=== PATIENT | male | born 1975 | race Caucasian/White ===

== ENCOUNTER 2019-12-17 19:33 | Emergency (ER) | payer MEDICARE, OTHER ==
[2019-12-17] MEDS ORDERED: SODIUM CHLORIDE 0.9% 1000ML 1,000 ML IVS ONE (20:10)
--- NOTE | 2019-12-17 20:49 | RAD ---
EXAM DESCRIPTION: Chest,1 View 12/17/2019 8:47 PM CDT CLINICAL HISTORY: 44 years, Male, dizziness, cough, syncope COMPARISON: None. FINDINGS: Single view of the chest was obtained portable. No prior films are available for comparison. The cardiomediastinal silhouette demonstrate to be unremarkable. The heart is not enlarged. The thoracic aorta is unremarkable. Costophrenic angles are sharp. No areas of consolidation or masses are seen. External EKG leads within the [id number] limits diagnosis. The rest of the soft tissue and bony structures demonstrate to be unremarkable. IMPRESSION: NO ACUTE CARDIOPULMONARY DISEASE SEEN. Electronically signed by: Mingo Nicole MD 12/17/2019 8:47 PM CDT
--- NOTE | 2019-12-17 21:09 | ED.PDOC ---
History of Present Illness - General Chief Complaint: General Stated Complaint: diarrhea, headache, dizziness, Time Seen by Provider: 12/17/19 20:10 Source: patient, RN notes reviewed, Vital Signs reviewed Exam Limitations: no limitations - History of Present Illness Initial Comments: This is a 44-year-old male with history of Buerger's disease, presenting to the emergency department complaining of cough, nasal congestion, sore throat, vomiting, diarrhea that began 3 to 4 days ago. He states over the last 24 hours he has felt dizzy when he stands and has had "numbness to my entire body". Episodes last anywhere from a few seconds to a few minutes. He states he has had two syncopal episodes, the most recent was today. He did not hit his head. He is unsure how long he was unconscious today. He denies any headache. No known Covid contacts. He states that his mother had "flu" last week but was not tested Allergies/Adverse Reactions: Allergies Aspirin Allergy (Verified 10/19/19 11:49) Penicillins Allergy (Verified 10/19/19 11:49) Home Medications: Ambulatory Orders Acetaminophen W/ Codeine [Tylenol W/ CODEINE #3] 1 ea PO TID PRN #10 ea 10/19/19 Clindamycin HCl 300 mg PO Q8H 10 Days #30 cap 10/19/19 Ofloxacin (Otic) [Floxin Otic] 0.3 % OT 5XD 5 Days #1 tube 10/19/19 Benzonatate Perles [Tessalon Perles] 1 - 2 capsule PO Q6H PRN #20 cap 12/17/19 Diphenoxylate/Atropine [Lomotil Tab] 5 mg PO Q6H PRN #20 tab 12/17/19 Ondansetron Odt (ER Disp) [Zofran ODT (ER DISP)] 8 mg PO ONCE PRN #2 tab 0 Ondansetron Odt [Zofran ODT] 8 mg PO Q6H PRN #10 tab 12/17/19 Review of Systems - Review of Systems Constitutional: States: chills. Denies: fever EENTM: States: nose congestion, throat pain. Denies: ear pain, ear discharge, throat swelling Respiratory: States: cough, short of breath. Denies: wheezing Cardiology: States: syncope. Denies: chest pain, edema Gastrointestinal/Abdominal: States: abdominal pain, diarrhea, nausea, vomiting. Denies: constipation Genitourinary: Denies: dysuria, hematuria Musculoskeletal: Denies: joint pain, joint swelling, muscle stiffness, neck pain Skin: Denies: dryness, lumps Neurological: States: paresthesia, tingling. Denies: headache, weakness Endocrine: States: no symptoms reported Hematologic/Lymphatic: States: no symptoms reported Past Medical History (General) - Patient Medical History Hx Stroke: No Hx of COPD: Yes Hx Congestive Heart Failure: No Hx Hypertension: Yes Hx Thyroid Disease: No Hx Diabetes: No Hx Renal Disease: No Surgical History: other - Vaccination History Hx Tetanus, Diphtheria Vaccination: Yes Hx Influenza Vaccination: Yes - 2019 Hx Pneumococcal Vaccination: Yes - 2019 - Social History Hx Tobacco Use: Yes Hx Alcohol Use: Yes - rarely Family Medical History - Family History Mother Family History: No Known Physical Exam - Physical Exam General Appearance: Alert, Comfortable, No apparent distress Ears, Nose, Throat: normal ENT inspection, normal pharynx Neck: non-tender, full range of motion, supple Respiratory: chest non-tender, lungs clear, normal breath sounds, no respiratory distress, no accessory muscle use Cardiovascular/Chest: normal peripheral pulses, regular rate, rhythm, no edema, no gallop, no JVD, no murmur Gastrointestinal/Abdominal: non tender, soft Back Exam: normal inspection, no CVA tenderness, no vertebral tenderness Extremity: non-tender, no pedal edema, other - Right index finger amputation, multiple toe amputations, consistent with his reported history of Buerger's disease Neurologic: no motor/sensory deficits, alert, normal mood/affect Skin Exam: normal color, warm/dry Progress - Progress Progress: 12/17/19 23:55 Rechecked. Vital signs remain normal. Patient states he still feels slightly dizzy when standing. I recommended he push fluids, including sports drinks. Recommended follow-up with PCP in 2 to 3 days for recheck. Strict warnings given to return the emergency room for recurrent syncope, chest pain, shortness of breath, fever, blood in stool, or any other concerns DDx: Arrhythmia, hypoglycemia, dehydration, COVID-19, other viral URI MDM: 44-year-old male with history of Buerger's disease presenting for reported syncope, dizziness, cough, runny nose, vomiting, diarrhea, all ongoing for 3 to 4 days. He is afebrile with normal vital signs of the emergency department. He does not appear septic at this time. Does not appear severely dehydrated at this time. Covid swab is negative. EKG is normal. No indication for admission. Recommended follow-up PCP in 3 to 5 days. Osito Clements DO [facility] #[id number] - Results/Orders Results/Orders: EKG reviewed by me at 2022. Normal sinus rhythm, rate of 88, normal axis, normal intervals, no ST segment elevations or depressions EXAM DESCRIPTION: Chest,1 View 12/17/2019 8:47 PM CDT CLINICAL HISTORY: 44 years, Male, dizziness, cough, syncope COMPARISON: None. FINDINGS: Single view of the chest was obtained portable. No prior films are available for comparison. The cardiomediastinal silhouette demonstrate to be unremarkable. The heart is not enlarged. The thoracic aorta is unremarkable. Costophrenic angles are sharp. No areas of consolidation or masses are seen. External EKG leads within the [id number] limits diagnosis. The rest of the soft tissue and bony structures demonstrate to be unremarkable. IMPRESSION: NO ACUTE CARDIOPULMONARY DISEASE SEEN. Electronically signed by: Mingo Nicole MD 12/17/2019 8:47 PM CDT Laboratory Results - last 24 hr 12/17/19 12/17/19 12/17/19 20:45 20:45 20:45 WBC 12.0 H RBC 5.05 Hgb 16.2 Hct 46.3 MCV 91.6 MCH 32.1 H MCHC 35.0 RDW 14.0 Plt Count 327 MPV 8.8 Absolute Neuts (auto) 9.00 H Absolute Lymphs (auto) 1.70 Absolute Monos (auto) 0.80 Absolute Eos (auto) 0.40 Absolute Basos (auto) 0.10 Neutrophils % 75.2 Lymphocytes % 14.1 L Monocytes % 6.8 Eosinophils % 2.9 Basophils % 1.0 D-Dimer, Quantitative < 131.0 L Sodium Potassium Chloride Carbon Dioxide Anion Gap BUN Creatinine BUN/Creatinine Ratio Random Glucose Serum Osmolality Calcium Magnesium Total Bilirubin AST ALT Alkaline Phosphatase Troponin I < 0.02 C-Reactive Protein B-Natriuretic Peptide Serum Total Protein Albumin Globulin Albumin/Globulin Ratio 12/17/19 20:45 WBC RBC Hgb Hct MCV MCH MCHC RDW Plt Count MPV Absolute Neuts (auto) Absolute Lymphs (auto) Absolute Monos (auto) Absolute Eos (auto) Absolute Basos (auto) Neutrophils % Lymphocytes % Monocytes % Eosinophils % Basophils % D-Dimer, Quantitative Sodium 137 Potassium 3.4 L Chloride 97 L Carbon Dioxide 28 Anion Gap 15.4 BUN 14 Creatinine 0.76 BUN/Creatinine Ratio 18.4 Random Glucose 80 Serum Osmolality 273.3 L Calcium 9.2 Magnesium 2.1 Total Bilirubin 0.8 AST 32 ALT 19 Alkaline Phosphatase 54 Troponin I C-Reactive Protein < 8 H B-Natriuretic Peptide < 15.0 Serum Total Protein 7.3 Albumin 4.4 Globulin 2.9 Albumin/Globulin Ratio 1.5 Respiratory viral panel all negative. Departure - Departure Clinical Impression: Viral upper respiratory tract infection with cough, Nausea vomiting and diarrhea, Syncope due to orthostatic hypotension, Dehydration Disposition: Discharge to Home or Self Care Condition: Good Departure Forms: ED Discharge - Pt. Copy, Patient Portal Self Enrollment Instructions: Dehydration, Adult (DC), Viral Upper Respiratory Infection, Adult (DC) Referrals: BELKIS FORMAN [Primary Care Provider] - 1-5 Days Prescriptions: Diphenoxylate/Atropine [Lomotil Tab] 5 mg PO Q6H PRN #20 tab PRN Reason: Diarrhea Benzonatate Perles [Tessalon Perles] 1 - 2 capsule PO Q6H PRN #20 cap PRN Reason: Cough Ondansetron Odt [Zofran ODT] 8 mg PO Q6H PRN #10 tab PRN Reason: Nausea Ondansetron Odt (ER Disp) [Zofran ODT (ER DISP)] 8 mg PO ONCE PRN #2 tab PRN Reason: Nausea Home Medications: Ambulatory Orders Acetaminophen W/ Codeine [Tylenol W/ CODEINE #3] 1 ea PO TID PRN #10 ea 10/19/19 Clindamycin HCl 300 mg PO Q8H 10 Days #30 cap 10/19/19 Ofloxacin (Otic) [Floxin Otic] 0.3 % OT 5XD 5 Days #1 tube 10/19/19 Benzonatate Perles [Tessalon Perles] 1 - 2 capsule PO Q6H PRN #20 cap 12/17/19 Diphenoxylate/Atropine [Lomotil Tab] 5 mg PO Q6H PRN #20 tab 12/17/19 Ondansetron Odt (ER Disp) [Zofran ODT (ER DISP)] 8 mg PO ONCE PRN #2 tab 12/17/19 Ondansetron Odt [Zofran ODT] 8 mg PO Q6H PRN #10 tab 12/17/19
[2019-12-18 00:49] VITALS: BP 123/79; TEMP 96.5; O2SAT 97
== END 2019-12-18 00:04 | disposition home or self-care (01) ==
LOC: ER 19:33
DX: J06.9 Acute upper respiratory infection, unspecified (principal); R11.2 Nausea with vomiting, unspecified; R19.7 Diarrhea, unspecified; E86.0 Dehydration; R55 Syncope and collapse; I95.1 Orthostatic hypotension; I73.1 Thromboangiitis obliterans [Buerger's disease]; Z20.828 Contact with and (suspected) exposure to other viral communicable diseases; J44.9 Chronic obstructive pulmonary disease, unspecified; I10 Essential (primary) hypertension; Z87.891 Personal history of nicotine dependence
CPT/HCPCS: 71045; 80053; 83735; 83880; 84484; 85025; 85379; 86140; 87486; 87581; 87633; 87635; 93005; J7030

== ENCOUNTER 2020-01-09 23:11 | Emergency (ER) | payer MEDICAID, OTHER ==
[2020-01-09] MEDS ORDERED: HYDROcodone 5MG/APAP 325MG 1 EA TAB PO ONE (23:53)
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
--- NOTE | 2020-01-10 00:04 | RAD ---
EXAM DESCRIPTION: Tibia/Fibula,Right 01/10/2020 12:02 AM COMMISSARY HELPER CLINICAL HISTORY: 44 years, Male, pain COMPARISON: None. FINDINGS: 2 X-ray views of the right tibia and fibula (frontal and lateral) were performed. No areas of acute bony injuries were demonstrated. No gross articular or soft tissue abnormality is identified. There are no gross intraosseous lesions. No periosteal reaction were seen. No radiopaque foreign body is identified. IMPRESSION: NO EVIDENCE FOR FRACTURE OR DISLOCATION AT THE RIGHT TIBIA AND FIBULA. Electronically signed by: Mingo Nicole MD 01/10/2020 12:03 AM COMMISSARY HELPER
--- NOTE | 2020-01-10 00:04 | RAD ---
EXAM DESCRIPTION: Ankle,Right 3 Views 01/10/2020 12:01 AM MOVIE THEATER USHER CLINICAL HISTORY: 44 years, Male, pain COMPARISON: None. FINDINGS: 3 X-ray views of the right ankle were performed. There is no evidence for fracture or dislocation. There is mild diffuse bony osteopenia. The ankle mortise is intact. There is no significant joint effusion. There are no gross intraosseous lesions. No gross soft tissue abnormality is demonstrated. Noted is the presence of amputation of the right foot at the level of the base metatarsals. IMPRESSION: STATUS POST AMPUTATION OF THE FOOT AT THE LEVEL OF THE BASE OF THE METATARSALS. NO EVIDENCE OF FRACTURE OR DISLOCATION AT THE RIGHT ANKLE. Electronically signed by: Mingo Nicole MD 01/10/2020 12:02 AM MOVIE THEATER USHER
[2020-01-10 01:14] VITALS: O2SAT 99
[2020-01-10 01:18] VITALS: BP 122/69; TEMP 98.2
== END 2020-01-10 01:10 | disposition home or self-care (01) ==
LOC: ER 23:11
DX: M76.61 Achilles tendinitis, right leg (principal); J44.9 Chronic obstructive pulmonary disease, unspecified; I10 Essential (primary) hypertension; Z89.431 Acquired absence of right foot; Z87.891 Personal history of nicotine dependence; Z86.718 Personal history of other venous thrombosis and embolism; Z88.6 Allergy status to analgesic agent; Z88.0 Allergy status to penicillin

== ENCOUNTER 2020-01-23 22:33 | Emergency (ER) | payer MEDICAID, OTHER ==
[2020-01-23] MEDS ORDERED: SODIUM CHLORIDE 0.9% 1000ML 1,000 ML IVS ONE (23:10)
[2020-01-23] MEDS ORDERED: PROMETHAZINE HCL INJ 25 MG in SODIUM CHLORIDE 0.9% 50ML 50 ML IVPB ONE (23:10)
--- NOTE | 2020-01-24 00:27 | RAD ---
EXAM DESCRIPTION: Abdomen Series CLINICAL HISTORY: 44 years Male ,dizziness, nv COMPARISON: Chest x-ray from 12/17/2019. TECHNIQUE: Frontal view chest x-ray and two views of the abdomen. FINDINGS: The cardiomediastinal silhouette appears unremarkable. No consolidating infiltrates or pleural effusions. No free air is identified beneath the hemidiaphragms. The ascending and transverse colon appears slightly distended with stool. No dilated loops of bowel to suggest obstruction. No significant calcific densities are identified. There are changes from previous vertebral body augmentation at T10. There are changes of anterior and posterior fusion at L3-4. IMPRESSION: No acute plain film abnormality is identified. Electronically signed by: Codey Rowe MD 01/24/2020 12:26 AM CASTING TECHNICIAN
[2020-01-24] MEDS ORDERED: predniSONE 20 MG TAB PO ONE (00:58)
--- NOTE | 2020-01-24 01:52 | ED.PDOC ---
History of Present Illness - General Chief Complaint: General Stated Complaint: body aches, nausea Time Seen by Provider: 01/23/20 22:44 Source: patient Exam Limitations: no limitations - History of Present Illness Initial Comments: The patient is a 44-year-old male presented to emergency room secondary to what sounds like a few episodes of vertigo today with associated nausea and vomiting. He is a little bit dizzy currently but the room is not spinning. No abnormal nystagmus. No visual field changes. He does get a little more dizzy with looking upwards. He does get a little more dizzy with standing. No syncope. No head trauma. Head impulse testing does not really localize to one side or another. The patient does have a foreign body wedged in the left ear canal irritating the eardrum. No abdominal tenderness to palpation. No rebound or peritoneal signs. No fever. No significant vertical skew deviation. Timing/Duration: other - 8 hours Severity: moderate Improving Factors: nothing Worsening Factors: nothing Associated Symptoms: malaise Allergies/Adverse Reactions: Allergies Aspirin Allergy (Verified 10/19/19 11:49) Penicillins Allergy (Verified 10/19/19 11:49) Home Medications: Ambulatory Orders Meclizine HCl 25 mg PO Q6HR PRN #14 tab 01/24/20 Ondansetron Odt [Zofran ODT] 4 mg PO Q8HR PRN #5 tab 01/24/20 predniSONE [Prednisone] 20 mg PO DAILY #7 tab 01/24/20 Review of Systems - Review of Systems Constitutional: States: malaise EENTM: States: other - Mild decreased hearing out of left ear Respiratory: States: no symptoms reported Cardiology: States: no symptoms reported Gastrointestinal/Abdominal: States: nausea, vomiting Genitourinary: States: no symptoms reported Musculoskeletal: States: no symptoms reported Skin: States: no symptoms reported Neurological: States: see HPI Endocrine: States: no symptoms reported All other Systems: No Change from Baseline Past Medical History (General) - Patient Medical History Hx Stroke: No Hx of COPD: Yes Hx Congestive Heart Failure: No Hx Hypertension: Yes Hx Thyroid Disease: No Hx Diabetes: No Hx Renal Disease: No Surgical History: appendectomy, cholecystectomy, other - Vaccination History Hx Tetanus, Diphtheria Vaccination: Yes Hx Influenza Vaccination: Yes - 2018 Hx Pneumococcal Vaccination: Yes - 2019 - Social History Hx Tobacco Use: Yes Hx Alcohol Use: Yes - rarely Family Medical History - Family History Mother Family History: No Known Physical Exam - Physical Exam General Appearance: Alert, No apparent distress Eye Exam: bilateral normal Ears, Nose, Throat: hearing grossly normal, normal pharynx, other - Foreign body removed from left ear canal leaving a irritated tympanic membrane on the left Neck: full range of motion, supple Respiratory: lungs clear, normal breath sounds, no respiratory distress, no accessory muscle use Cardiovascular/Chest: normal peripheral pulses, regular rate, rhythm, no edema Peripheral Pulses: radial,right: 2+, radial,left: 2+ Gastrointestinal/Abdominal: non tender, soft Rectal Exam: deferred Back Exam: no CVA tenderness, no vertebral tenderness Extremity: normal range of motion, non-tender, normal inspection, no pedal edema, normal capillary refill 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 This is most likely due to a labyrinthitis based on history and exam. The patient is going to be placed on prednisone 20 mg a day for 5 days. He will also be written for meclizine for dizziness for as needed use and Zofran to control any nausea vomiting. He needs to keep himself well-hydrated and maintain a bland diet. Foreign body was removed from the left ear canal which will hopefully help. No antibiotics are warranted at this time otherwise. ER warnings are given for any significant worsening. Follow-up with primary care doctor within the coming week. brant gamino [phone] - Results/Orders Results/Orders: Abdominal 2 view shows no acute pathology. Laboratory Tests 01/23/20 01/23/20 01/23/20 23:30 23:30 23:30 WBC 6.4 RBC 4.65 L Hgb 14.7 Hct 41.8 L MCV 89.9 MCH 31.6 H MCHC 35.1 RDW 14.1 Plt Count 290 MPV 8.9 Absolute Neuts (auto) 3.20 Absolute Lymphs (auto) 2.20 Absolute Monos (auto) 0.60 Absolute Eos (auto) 0.30 Absolute Basos (auto) 0.10 Neutrophils % 50.4 Lymphocytes % 34.8 Monocytes % 8.8 Eosinophils % 5.1 H Basophils % 0.9 PT 9.6 INR < 1.00 PTT (SP) 26.5 D-Dimer, Quantitative < 131.0 L Sodium 138 Potassium 3.7 Chloride 101 Carbon Dioxide 27 Anion Gap 13.7 BUN 12 Creatinine 0.71 BUN/Creatinine Ratio 16.9 Random Glucose 97 Serum Osmolality 275.4 Lactic Acid Calcium 8.3 L Magnesium 2.2 Total Bilirubin 0.5 AST 19 ALT 18 Alkaline Phosphatase 44 Creatine Kinase 89 CK-MB (CK-2) 2.2 CK-MB (CK-2) % Not Reportable Troponin I < 0.02 B-Natriuretic Peptide < 15.0 Serum Total Protein 6.6 Albumin 4.1 Globulin 2.5 Albumin/Globulin Ratio 1.6 Amylase 63 Lipase 36 TSH 1.68 Urine Color Urine Appearance Urine pH Ur Specific [place] Urine Protein Urine Glucose (UA) Urine Ketones Urine Blood Urine Nitrite Urine Bilirubin Urine Urobilinogen Ur Leukocyte Esterase Urine RBC Urine WBC Ur Epithelial Cells Urine Bacteria 01/23/20 01/24/20 23:30 00:40 WBC RBC Hgb Hct MCV MCH MCHC RDW Plt Count MPV Absolute Neuts (auto) Absolute Lymphs (auto) Absolute Monos (auto) Absolute Eos (auto) Absolute Basos (auto) Neutrophils % Lymphocytes % Monocytes % Eosinophils % Basophils % PT INR PTT (SP) D-Dimer, Quantitative Sodium Potassium Chloride Carbon Dioxide Anion Gap BUN Creatinine BUN/Creatinine Ratio Random Glucose Serum Osmolality Lactic Acid 0.8 Calcium Magnesium Total Bilirubin AST ALT Alkaline Phosphatase Creatine Kinase CK-MB (CK-2) CK-MB (CK-2) % Troponin I B-Natriuretic Peptide Serum Total Protein Albumin Globulin Albumin/Globulin Ratio Amylase Lipase TSH Urine Color Yellow Urine Appearance Clear Urine pH 7.0 Ur Specific [place] 1.020 Urine Protein Negative Urine Glucose (UA) Negative Urine Ketones Negative Urine Blood Negative Urine Nitrite Negative Urine Bilirubin Negative Urine Urobilinogen 0.2 Ur Leukocyte Esterase Negative Urine RBC 0 Urine WBC 0 Ur Epithelial Cells 0 Urine Bacteria 0 Departure - Departure Clinical Impression: Vertigo Foreign body in ear Qualifiers: Encounter type: initial encounter Laterality: left Qualified Code(s): T16.2XXA - Foreign body in left ear, initial encounter Disposition: Discharge to Home or Self Care Condition: Fair Departure Forms: ED Discharge - Pt. Copy, Patient Portal Self Enrollment Diet: regular diet Activity: increase activity as tolerated Referrals: BELKIS FORMAN [Primary Care Provider] - 1-2 Weeks Prescriptions: Meclizine HCl 25 mg PO Q6HR PRN #14 tab PRN Reason: Dizziness Ondansetron Odt [Zofran ODT] 4 mg PO Q8HR PRN #5 tab PRN Reason: Nausea--Moderate predniSONE [Prednisone] 20 mg PO DAILY #7 tab Home Medications: Ambulatory Orders Meclizine HCl 25 mg PO Q6HR PRN #14 tab 01/24/20 Ondansetron Odt [Zofran ODT] 4 mg PO Q8HR PRN #5 tab 01/24/20 predniSONE [Prednisone] 20 mg PO DAILY #7 tab 01/24/20 Additional Instructions: The patient is a 44-year-old male presents emergency room with what appears to be vertigo. This is most likely due to a labyrinthitis based on history and exam. The patient is going to be placed on prednisone 20 mg a day for 5 days. He will also be written for meclizine for dizziness for as needed use and Zofran to control any nausea vomiting. He needs to keep himself well-hydrated and maintain a bland diet. Foreign body was removed from the left ear canal which will hopefully help. No antibiotics are warranted at this time otherwise. ER warnings are given for any significant worsening. Follow-up with primary care doctor within the coming week.
[2020-01-24 02:03] VITALS: BP 106/61; TEMP 97.4; O2SAT 97
== END 2020-01-24 02:02 | disposition home or self-care (01) ==
LOC: ER 22:33
DX: R42 Dizziness and giddiness (principal); T16.2XXA Foreign body in left ear, initial encounter; J44.9 Chronic obstructive pulmonary disease, unspecified; Y92.9 Unspecified place or not applicable; Z87.891 Personal history of nicotine dependence; Z88.0 Allergy status to penicillin; Z88.6 Allergy status to analgesic agent
CPT/HCPCS: 74019; 80053; 81001; 82150; 82550; 82553; 83605; 83690; 83735; 83880; 84443; 84484; 85025; 85379; 85610; 85730; A4216; J2550; J7512

== ENCOUNTER 2020-02-07 13:49 | Emergency (ER) | payer OTHER ==
--- NOTE | 2020-02-07 16:28 | ED.PDOC ---
History of Present Illness - General Chief Complaint: Back Pain or Injury Stated Complaint: back pain x several days, also cough and cold Time Seen by Provider: 02/07/20 13:50 Source: patient, RN notes reviewed, Vital Signs reviewed - History of Present Illness Initial Comments: 44 yo male with 4 days of back pain, right thoracic, lateral. hx of multiple fusion surgeries in the past. no issues with urination or bowel. no saddle numbness. also has cough, cousin with covid. no recent trauma. patient was lifting something at work when he felt a spasm in his upper back. worse with rotation. Allergies/Adverse Reactions: Allergies Aspirin Allergy (Verified 10/19/19 11:49) Penicillins Allergy (Verified 10/19/19 11:49) Tramadol Allergy (Verified 02/07/20 16:20) Ketorolac Tromethamine [From Toradol] Adverse Reaction (Verified 02/07/20 16:20) Home Medications: Ambulatory Orders Meclizine HCl 25 mg PO Q6HR PRN #14 tab 01/24/20 Ondansetron Odt [Zofran ODT] 4 mg PO Q8HR PRN #5 tab 01/24/20 predniSONE [Prednisone] 20 mg PO DAILY #7 tab 01/24/20 Acetaminophen W/ Codeine [Tylenol W/ CODEINE #3] 1 tab PO TID PRN #15 tab 02/07/20 Gabapentin 100 mg PO QID PRN #30 cap 02/07/20 Review of Systems - Review of Systems Constitutional: Denies: chills, fever, malaise EENTM: Denies: throat pain Respiratory: States: cough. Denies: short of breath Cardiology: Denies: chest pain, palpitations Gastrointestinal/Abdominal: Denies: abdominal pain, diarrhea, nausea, vomiting Genitourinary: Denies: dysuria, frequency, hematuria, pain Musculoskeletal: States: back pain. Denies: muscle pain Neurological: Denies: numbness, paresthesia, pre-existing deficit, tingling, tremors, weakness Endocrine: Denies: unexplained weight loss Hematologic/Lymphatic: Denies: easy bleeding, easy bruising Past Medical History (General) - Patient Medical History Hx Seizures: No Hx Stroke: No Hx Dementia: No Hx Asthma: No Hx of COPD: No Hx Cardiac Disorders: No Hx Congestive Heart Failure: No Hx Pacemaker: No Hx Hypertension: Yes Hx Thyroid Disease: No Hx Diabetes: No Hx Gastroesophageal Reflux: No Hx Renal Disease: No Hx Cancer: No Hx of HIV: No Hx Hepatitis C: No Hx MRSA: No Surgical History: other - back surgery - Vaccination History Hx Tetanus, Diphtheria Vaccination: Yes Hx Influenza Vaccination: No Hx Pneumococcal Vaccination: No Immunizations Up to Date: No - Social History Hx Tobacco Use: No Hx Chewing Tobacco Use: No Hx Alcohol Use: Yes Hx Substance Use: Yes Hx Substance Use Treatment: No Hx Depression: No Feels Threatened In Home Enviroment: No Feels Threatened In a Relationship: No Hx Physical Abuse: No Hx Emotional Abuse: No Hx Suspected Abuse: No - Female History Patient is a Female of Child Bearing Age (10 -59 yrs old): No Patient : No Family Medical History - Family History Mother Family History: No Known Living Status: Still Living Hx Family Asthma: No Hx Family Congestive Heart Failure: No Hx Family Hypertension: No Hx Family Stroke: No Hx Cardiac Disease: No Hx Family Diabetes: No Physical Exam - Physical Exam General Appearance: Alert, Comfortable, No apparent distress, Well Developed, Well Groomed, Well Hydrated, Well Nourished Eyes, Ears, Nose, Throat Exam: PERRL/EOMI, normal ENT inspection Neck Exam: non-tender, full range of motion, normal alignment, normal inspection Cardiovascular/Respiratory: regular rate, rhythm, no M/R/G, normal peripheral pulses, no JVD, normal breath sounds, no respiratory distress Peripheral Pulses: radial,right: 2+, radial,left: 2+ Gastrointestinal/Abdominal: normal bowel sounds, non tender, soft, no organomegaly, no pulsatile mass, other - rectal shows normal tone. Back Exam: normal inspection, no CVA tenderness, no vertebral tenderness, muscle spasm, other - paravertabral muscle tenderness Lumbar spine angelo, left thoracic spine around t8 Extremity Exam: no evidence of injury, normal range of motion, non-tender, no pedal edema, other - 5/5 francisca upper and lower extremity. 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 02/07/20 19:[address]: No acute lumbar spinal fracture is identified. . Previous spinal fusion at L3-L4 with moderate central canal and severe bilateral neural foraminal stenosis Generalized bulging of the disc and facet arthropathy at L4- L5 resulting in severe central canal and severe bilateral neural foraminal stenosis Additional changes as above thoracic ct: No acute thoracic spinal fracture is identified. Previous vertebroplasty changes at T10 The data reviewed when caring for this patient included: nurse notes, prior records, etc. The history and assessments from nurses notes were reviewed and considered, and the patient's home medication list was also reviewed and considered. My assessment and the results of testing completed here in the ED were discussed with the patient/family. All questions were answered, and they express understanding of my assessment and the plan. They have been instructed to return if their symptoms worsen, and have been asked to follow up with their primary care physician to recheck today's presenting complaint. educated about signs and symptoms of cauda equina. also educated about spinal abscess, patient denies IVDA. no fever. no midline back pain. Strict return precautions given. I have reviewed medication, benefits, alternatives and side effects. Patient decided to proceed with medication.also encouraged patient to get pcp here, elevated wbc with left shift. no evidence of infection at this time, close follow up recommended. stable gait. Vida Otero DO #[id number] 02/07/20 19:13 02/07/20 19:14 02/07/20 19:15 - Results/Orders Results/Orders: 02/07/20 18:11 Discharge Stat Laboratory Results WBC 17.9 K/mm3 (4.8-10.8) H 02/07/20 16:47 RBC 5.26 M/mm3 (4.70-6.10) 02/07/20 16:47 Hgb 16.1 gm/dL (14.0-18.0) 02/07/20 16:47 Hct 46.8 % (42.0-52.0) 02/07/20 16:47 MCV 89.0 fl (80.0-94.0) 02/07/20 16:47 MCH 30.6 pg (27.0-31.0) 02/07/20 16:47 MCHC 34.4 g/dL (33.0-37.0) 02/07/20 16:47 RDW 13.8 % (11.5-14.5) 02/07/20 16:47 Plt Count 418 K/mm3 (130-400) H 02/07/20 16:47 MPV 8.9 fl (7.40-10.4) 02/07/20 16:47 Absolute Neuts (auto) 15.40 K/uL (1.8-6.8) H 02/07/20 16:47 Absolute Lymphs (auto) 1.50 K/uL (1.0-3.4) 02/07/20 16:47 Absolute Monos (auto) 0.80 K/uL (0.2-0.8) 02/07/20 16:47 Absolute Eos (auto) 0.10 K/uL (0.0-0.4) 02/07/20 16:47 Absolute Basos (auto) 0.10 K/uL (0.0-0.1) 02/07/20 16:47 Neutrophils % 85.8 % (42.0-78.0) H 02/07/20 16:47 Neutrophils % (Manual) 86.0 % (42.0-78.0) H 02/07/20 16:47 Lymphocytes % 8.3 % (20.0-50.0) L 02/07/20 16:47 Lymphocytes % (Manual) 8.0 % 02/07/20 16:47 Monocytes % 4.5 % (2.0-9.0) 02/07/20 16:47 Monocytes % (Manual) 3.0 % 02/07/20 16:47 Eosinophils % 0.8 % (1.0-5.0) L 02/07/20 16:47 Basophils % 0.6 % (0.0-2.0) 02/07/20 16:47 Band Neutrophils 3.0 % (0-2) H 02/07/20 16:47 Platelet Estimate Increased (NORMAL) 02/07/20 16:47 - EKG/XRAY/CT XRAY: chest - no acute cardiopulmonary pathology. Departure - Departure Clinical Impression: Spinal stenosis Qualifiers: Spinal region: lumbar Neurogenic claudication status: unspecified Qualified Code(s): M48.061 - Spinal stenosis, lumbar region without neurogenic claudication Herniated disc Qualifiers: Spinal region: lumbar Qualified Code(s): M51.26 - Other intervertebral disc displacement, lumbar region Leukocytosis Qualifiers: Leukocytosis type: unspecified Qualified Code(s): D72.829 - Elevated white blood cell count, unspecified Time of Disposition: 17:38 Disposition: Discharge to Home or Self Care Departure Forms: ED Discharge - Pt. Copy, Patient Portal Self Enrollment Instructions: DI for Low Back Pain, Spinal Stenosis, Low Back Pain in Adults, Herniated Disc, White Blood Cell Count Differential Test, Herniated Disc Exercises, Cauda Equina Syndrome Diet: resume usual diet Activity: increase activity as tolerated Referrals: Bladimir Silveira MD [Physicians] - 1-5 Days Demi BURDEN [Referring] - 1-5 Days Prescriptions: Gabapentin 100 mg PO QID PRN #30 cap PRN Reason: Pain Acetaminophen W/ Codeine [Tylenol W/ CODEINE #3] 1 tab PO TID PRN #15 tab PRN Reason: Pain Home Medications: Ambulatory Orders Meclizine HCl 25 mg PO Q6HR PRN #14 tab 01/24/20 Ondansetron Odt [Zofran ODT] 4 mg PO Q8HR PRN #5 tab 01/24/20 predniSONE [Prednisone] 20 mg PO DAILY #7 tab 01/24/20 Acetaminophen W/ Codeine [Tylenol W/ CODEINE #3] 1 tab PO TID PRN #15 tab 02/07/20 Gabapentin 100 mg PO QID PRN #30 cap 02/07/20 Additional Instructions: [facility] [place], [facility] [address] [place] [address]
[2020-02-07] MEDS ORDERED: HYDROcodone 5MG/APAP 325MG 1 EA TAB PO ONE (16:34)
--- NOTE | 2020-02-07 17:28 | CT ---
PROCEDURE: Lumbar Spine CLINICAL HISTORY: 44 years ,Male ,back pain COMPARISON: None. TECHNIQUE: Contiguous axial images obtained through the lumbar spine without IV contrast. Coronal and sagittal reformatted images obtained. This exam was performed according to our department optimization program which includes automated exposure control, adjustment of the mA and/or kv according to patient size and/or use of iterative reconstruction technique. FINDINGS: Straightening of the normal lordosis. Previous spinal fusion at L3-L4 with intervertebral graft, pedicle screws and posterior fixation rods. Congenital narrowing of the spinal canal. Vascular calcification. L2-3: Mild annular central canal and neural foramina. Facet arthropathy. L3-4: Hemilaminectomy changes on the left. There appears to be moderate narrowing of the central canal and severe bilateral neural foraminal narrowing. L4-5: Facet arthropathy and bulging of the disc. Severe narrowing of the central canal and neural foramina. L5-S1: Bulging of the disc and facet arthropathy with moderate bilateral neural foraminal stenosis. IMPRESSION: No acute lumbar spinal fracture is identified. . Previous spinal fusion at L3-L4 with moderate central canal and severe bilateral neural foraminal stenosis Generalized bulging of the disc and facet arthropathy at L4-L5 resulting in severe central canal and severe bilateral neural foraminal stenosis Additional changes as above Electronically signed by: Pilar Rowe MD 02/07/2020 5:[address] [facility]
--- NOTE | 2020-02-07 17:32 | CT ---
PROCEDURE: Thoracic Spine CLINICAL HISTORY: 44 years Male back pain COMPARISON: None. TECHNIQUE: Contiguous axial images obtained through the thoracic spine without IV contrast. Coronal and sagittal reformatted images obtained. This exam was performed according to our department optimization program which includes automated exposure control, adjustment of the mA and/or kv according to patient size and/or use of iterative reconstruction technique. FINDINGS: Vertebral body alignment unremarkable. No acute thoracic spine fractures are identified. Previous vertebroplasty changes at T10. No significant loss of height in the T10 vertebral body. Minimal extravasation of methylmethacrylate into the epidural veins. No evidence of acute fracture. No central canal narrowing. IMPRESSION: No acute thoracic spinal fracture is identified. Previous vertebroplasty changes at T10 Electronically signed by: Pilar Rowe MD 02/07/2020 5:31 PM [facility]
[2020-02-07] MEDS ORDERED: MORPHINE SULFATE INJ 10 MG/ML VIAL IV ONE (17:36)
[2020-02-07] MEDS ORDERED: SODIUM CHLORIDE 0.9% (FLUSH) 10 ML SYG ONE (17:44)
--- NOTE | 2020-02-07 18:23 | RAD ---
XR CHEST 1 VIEW CLINICAL STATEMENT: cough COMPARISON: 12/17/2019 FINDINGS: Cardiomediastinal silhouette is within normal limits. There is no focal lung consolidation or pleural effusion. No evidence of pulmonary edema or pneumothorax. IMPRESSION: No acute cardiopulmonary disease. Electronically signed by: Bigg Munguia MD 02/07/2020 6:21 PM [facility]
[2020-02-07 18:30] VITALS: TEMP 98.3
[2020-02-07 18:48] VITALS: BP 114/75; O2SAT 98
== END 2020-02-07 18:25 | disposition home or self-care (01) ==
LOC: ER 13:49
DX: M48.061 Spinal stenosis, lumbar region without neurogenic claudication (principal); M51.26 Other intervertebral disc displacement, lumbar region; D72.829 Elevated white blood cell count, unspecified; R05 Cough; I10 Essential (primary) hypertension; Z20.828 Contact with and (suspected) exposure to other viral communicable diseases; Z79.899 Other long term (current) drug therapy; Z88.6 Allergy status to analgesic agent; Z88.0 Allergy status to penicillin; Z88.5 Allergy status to narcotic agent; Z98.1 Arthrodesis status
CPT/HCPCS: 71045; 72128; 72131; 85025; 87635; A4216; J2270

== ENCOUNTER 2020-03-09 10:32 | Emergency (ER) | payer OTHER ==
--- NOTE | 2020-03-09 10:37 | ED.PDOC ---
History of Present Illness - General Time Seen by Provider: 03/09/20 10:34 Source: patient - History of Present Illness Initial Comments: 44-year-old male with past medical history of chronic back pain, Buerger's disease who presents with chief complaint of low back pain following acute injury yesterday morning at 7 AM at home. Patient states he was walking down some stairs when he tripped and fell backwards and landed on his lower back in the midline. Since then he reports a constant pain to the area, 7/10 severity, worsens with any movement of the back/walking/standing, also worsens with urination. He states he is having some burning with urination and also dark- colored urine since the injury. He is taking some ibuprofen and Tylenol at home with little improvement. Denies any weakness or numbness. Denies saddle anesthesia. Denies any other acute symptoms. Patient reports history of chronic back and neck pain and has had several spinal fusions in the past. Has history of Buerger's disease and has had BL TMA's (2011) which he reports causes him to have poor balance and frequent falls. Allergies/Adverse Reactions: Allergies Aspirin Allergy (Verified 10/19/19 11:49) Penicillins Allergy (Verified 10/19/19 11:49) Tramadol Allergy (Verified 02/07/20 16:20) Home Medications: Ambulatory Orders Meclizine HCl 25 mg PO Q6HR PRN #14 tab 01/24/20 Gabapentin 100 mg PO QID PRN #30 cap 02/07/20 Acetamin W/Cod #3 Tab [Tylenol w/CODEINE #3] 1 ea PO Q6H PRN 7 Days #10 tab 03/09/20 Cyclobenzaprine HCl [Flexeril] 10 mg PO Q8H PRN 30 Days #30 tab 03/09/20 Review of Systems - Review of Systems Review of Systems: 03/09/20 10:55 as per HPI All other Systems: Reviewed and Negative Past Medical History (General) - Patient Medical History Hx Seizures: No Hx Stroke: No Hx Dementia: No Hx Asthma: No Hx of COPD: No Hx Cardiac Disorders: No Hx Congestive Heart Failure: No Hx Pacemaker: No Hx Hypertension: Yes Hx Thyroid Disease: No Hx Diabetes: No Hx Gastroesophageal Reflux: No Hx Renal Disease: No Hx Cancer: No Hx of HIV: No Hx Hepatitis C: No Hx MRSA: No - Vaccination History Hx Tetanus, Diphtheria Vaccination: Yes Hx Influenza Vaccination: No Hx Pneumococcal Vaccination: No - Social History Hx Tobacco Use: No Hx Chewing Tobacco Use: No Hx Alcohol Use: Yes Hx Substance Use: Yes Hx Substance Use Treatment: No Hx Depression: No Hx Physical Abuse: No Hx Emotional Abuse: No Hx Suspected Abuse: No - Female History Patient : No Family Medical History - Family History Mother Family History: No Known Living Status: Still Living Hx Family Asthma: No Hx Family Congestive Heart Failure: No Hx Family Hypertension: No Hx Family Stroke: No Hx Cardiac Disease: No Hx Family Diabetes: No Physical Exam - Physical Exam General Appearance: Alert, Comfortable, No apparent distress Eye Exam: bilateral normal Ears, Nose, Throat: hearing grossly normal, normal ENT inspection, normal pharynx Neck: non-tender, full range of motion, supple, normal inspection Respiratory: chest non-tender, lungs clear, normal breath sounds, no respiratory distress, no accessory muscle use Cardiovascular/Chest: normal peripheral pulses, regular rate, rhythm, no edema, no gallop, no JVD, no murmur Peripheral Pulses: radial,right: 2+, radial,left: 2+ Gastrointestinal/Abdominal: non tender, soft, no organomegaly Back Exam: other - several old well-healed surgical scars noted to L-spine, no acute deformities/discoloration, moderate midline TTP noted at lower lumbar spine, ROM of L-spine moderately limited due to pain, strength/sensation intact throughout Extremity: normal range of motion, non-tender, normal inspection, no pedal edema, no calf tenderness, normal capillary refill, pelvis stable, other - s/p BL TMA's, appear well-healed, good color & cap refill throughout, 2+ pulses throughout Neurologic: manager acquisition II-XII nml as tested, no motor/sensory deficits, alert, normal mood/affect, oriented x 3 Skin Exam: normal color, warm/dry Progress - Progress Progress: 03/09/20 10:56 GLF, acute low back pain -suspect lower back contusion most likely, consider also strain, spasm, compression fracture, herniated vertebral disc, UTI, kidney stone, other. Emergent etiologies such as cauda equina appear unlikely given lack of red flag symptoms -obtain L-spine XR, UA -Toradol 60 mg IM (pt states not true allergy) & Flexeril 03/09/20 11:29 -XR L-spine reveal chronic unchanged findings of prior surgeries of L-spine with chronic Lumbar DDD. No acute findings or changes appear present compared to 02/07/2020 CT L spine imaging per my read. -UA unremarkable. -Pt reports pain improving. Discussed findings as well as dx of acute low back contusion with spasm. Will send home with Rx's of Flexeril and Tylenol #3 for breakthrough pain. F/u closely with PCP, return warnings discussed. Garo Damico MD Billing #[id number] 03/09/20 10:47 Lumbar Spine 3 Views [RAD] Stat Laboratory Results - last 24 hr 03/09/20 10:53 Urine Color Yellow Urine Appearance Cloudy Urine pH 7.5 Ur Specific [place] 1.020 Urine Protein Negative Urine Glucose (UA) Negative Urine Ketones Negative Urine Blood Negative Urine Nitrite Negative Urine Bilirubin Negative Urine Urobilinogen 0.2 Ur Leukocyte Esterase Negative Urine RBC 0 Urine WBC 0 Ur Epithelial Cells 0-1 Amorphous Sediment 1+ Urine Bacteria 0 Departure - Departure Clinical Impression: Lumbar contusion Qualifiers: Encounter type: initial encounter Qualified Code(s): S30.0XXA - Contusion of lower back and pelvis, initial encounter Time of Disposition: 11:33 Disposition: Discharge to Home or Self Care Condition: Good Instructions: Low Back Pain (DC) Diet: resume usual diet Activity: increase activity as tolerated Prescriptions: Cyclobenzaprine HCl [Flexeril] 10 mg PO Q8H PRN 30 Days #30 tab PRN Reason: Muscle Spasms Acetamin W/Cod #3 Tab [Tylenol w/CODEINE #3] 1 ea PO Q6H PRN 7 Days #10 tab PRN Reason: Pain Home Medications: Ambulatory Orders Meclizine HCl 25 mg PO Q6HR PRN #14 tab 01/24/20 Gabapentin 100 mg PO QID PRN #30 cap 02/07/20 Acetamin W/Cod #3 Tab [Tylenol w/CODEINE #3] 1 ea PO Q6H PRN 7 Days #10 tab 03/09/20 Cyclobenzaprine HCl [Flexeril] 10 mg PO Q8H PRN 30 Days #30 tab 03/09/20 Additional Instructions: Remain well-hydrated and continue to take [id number] medications as needed for pain and inflammation control such as ibuprofen 600 mg every 6 hours as needed and Tylenol 650 mg every 6 hours as needed. You may take the Flexeril as directed for back spasms and Tylenol #3 as directed for breakthrough pain. Do not drive or operate heavy machinery while taking this medicine as it may make you drowsy. Follow-up closely in the next 1 to 2 weeks with your regular doctor for repeat evaluation or sooner as needed.
[2020-03-09] MEDS ORDERED: CYCLOBENZAPRINE HCL 10 MG TAB PO ONE (10:47)
[2020-03-09] MEDS ORDERED: KETOROLAC TROMETHAMINE INJ 60 MG/2 ML VIAL IM ONE (10:47)
--- NOTE | 2020-03-09 11:36 | RAD ---
EXAM DESCRIPTION: Lumbar Spine 3 Views CLINICAL HISTORY: 44 years Male, GLF, low back injury pain COMPARISON: None. FINDINGS: Three views of the lumbar spine show postoperative changes at L3-4 without apparent hardware complication. No lumbar vertebral body fracture or subluxation. The disc spaces are well-maintained of the nonsurgical levels, small marginal osteophytes at several levels. The sacrum and sacroiliac joints are unremarkable. IMPRESSION: Uncomplicated postoperative changes at L3-4 with mild degenerative changes elsewhere in the lumbar spine. Electronically signed by: Lionel Cole MD 03/09/2020 11:34 AM [facility]
[2020-03-09 11:54] VITALS: BP 127/78; TEMP 98.1; O2SAT 92
== END 2020-03-09 11:52 | disposition home or self-care (01) ==
LOC: ER 10:32
DX: S30.0XXA Contusion of lower back and pelvis, initial encounter (principal); M51.36 Other intervertebral disc degeneration, lumbar region; G89.29 Other chronic pain; R30.0 Dysuria; I10 Essential (primary) hypertension; I73.1 Thromboangiitis obliterans [Buerger's disease]; Z98.890 Other specified postprocedural states; Z79.899 Other long term (current) drug therapy; Z88.6 Allergy status to analgesic agent; Z88.5 Allergy status to narcotic agent; Z88.0 Allergy status to penicillin; Z98.1 Arthrodesis status; W10.9XXA Fall (on) (from) unspecified stairs and steps, initial encounter; Y93.01 Activity, walking, marching and hiking; Y92.009 Unspecified place in unspecified non-institutional (private) residence as the place of occurrence of the external cause
CPT/HCPCS: 72100; 81001; J1885

== ENCOUNTER 2020-03-19 17:39 | Emergency (ER) | payer OTHER ==
[2020-03-19] MEDS ORDERED: MORPHINE SULFATE INJ 10 MG/ML VIAL IM ONE (18:45)
[2020-03-19] MEDS ORDERED: ONDANSETRON ODT 8 MG TAB SL ONE (18:47)
--- NOTE | 2020-03-19 18:49 | ED.PDOC ---
History of Present Illness - General Chief Complaint: Lower Extremity Injury Stated Complaint: right leg injury Time Seen by Provider: 03/19/20 18:14 Source: patient Exam Limitations: no limitations - History of Present Illness Initial Comments: Patient was injured in the [place] about 1-1/2 hours ago. A bull hooked him behind the right leg and threw him up in the air. He landed hard on his right leg. Patient now complains of pain in the medial right knee, minimal discomfort in the posterior right leg, and moderate discomfort in the right lateral malleolus. He has no prior history of injury to the right knee. 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 Patient denies any injury to the head, neck, back, chest, abdomen, other extremities. Occurred: this afternoon Pain - Lower Extremity: mild: Right Calf, Right Ankle, moderate: Right Knee Method of Injury: direct blow, fell Improving Factors: rest Worsening Factors: movement Allergies/Adverse Reactions: Allergies Aspirin Allergy (Verified 03/19/20 18:14) Penicillins Allergy (Verified 03/19/20 18:14) Tramadol Allergy (Verified 03/19/20 18:14) Home Medications: Ambulatory Orders Meclizine HCl 25 mg PO Q6HR PRN #14 tab 01/24/20 Gabapentin 100 mg PO QID PRN #30 cap 02/07/20 Acetamin W/Cod #3 Tab [Tylenol w/CODEINE #3] 1 ea PO Q6H PRN 7 Days #10 tab 03/09/20 Cyclobenzaprine HCl [Flexeril] 10 mg PO Q8H PRN 30 Days #30 tab 03/09/20 Oxycodone W/ Acetaminophen [Endocet 5-325 mg] 1 tab PO Q6H 3 Days #12 tab 03/19/20 Review of Systems - Review of Systems Constitutional: States: no symptoms reported EENTM: States: no symptoms reported Respiratory: States: no symptoms reported Cardiology: States: no symptoms reported Gastrointestinal/Abdominal: States: no symptoms reported Genitourinary: States: no symptoms reported Musculoskeletal: States: see HPI Skin: States: no symptoms reported Neurological: States: no symptoms reported Hematologic/Lymphatic: States: no symptoms reported Past Medical History (General) - Patient Medical History Hx Seizures: No Hx Stroke: No Hx Dementia: No Hx Asthma: No Hx of COPD: No Hx Cardiac Disorders: No Hx Congestive Heart Failure: No Hx Pacemaker: No Hx Hypertension: Yes Hx Thyroid Disease: No Hx Diabetes: No Hx Gastroesophageal Reflux: No Hx Renal Disease: No Hx Cancer: No Hx of HIV: No Hx Hepatitis C: No Hx MRSA: No - Vaccination History Hx Tetanus, Diphtheria Vaccination: Yes - 3 years ago Hx Influenza Vaccination: No Hx Pneumococcal Vaccination: No - Social History Hx Tobacco Use: No Hx Chewing Tobacco Use: No Hx Alcohol Use: Yes Hx Substance Use: Yes Hx Substance Use Treatment: No Hx Depression: No Hx Physical Abuse: No Hx Emotional Abuse: No Hx Suspected Abuse: No - Activities of Daily Living Hospice Agency (if applicable):: None - Female History Patient is a Female of Child Bearing Age (10 -59 yrs old): No Patient : No Family Medical History - Family History Mother Family History: No Known Living Status: Still Living Hx Family Asthma: No Hx Family Congestive Heart Failure: No Hx Family Hypertension: No Hx Family Stroke: No Hx Cardiac Disease: No Hx Family Diabetes: No Physical Exam - Physical Exam General Appearance: Alert Eyes, Ears, Nose, Throat: PERRL/EOMI Neck: non-tender, full range of motion, supple Cardiovascular/Respiratory: regular rate, rhythm, normal breath sounds Gastrointestinal/Abdominal: non-tender, no organomegaly Back: normal inspection, no vertebral tenderness Thigh/Hip: normal inspection, non-tender Leg: normal inspection, other - Minimal posterior tenderness without swelling ecchymosis deformity or crepitus. Knee: normal inspection, normal ROM, other - Mildly tender medial joint line. No effusion. No ligamentous laxity.Art's test is positive on the medial side. Ankle: normal inspection, soft tissue tenderness - Mildly tender over the lateral malleolus. No deformity. No ligamentous laxity., other - Mild tenderness of both malleolus on the right ankle without swelling or deformity. Foot: other - Distal metatarsals and toes on the right foot are absent due to prior surgical resection. Neuro/Tendon: normal sensation, normal motor functions, normal tendon functions Mental Status: alert, oriented x 3 Skin: normal color Progress - Progress Progress: 03/19/20 20:15 Morphine 4 mg IM and Zofran ODT 8 mg Anglea given with improvement in pain. A right knee immobilizer and crutches were issued. - Results/Orders Results/Orders: X-rays of the right knee, right tib-fib and right ankle do not show any acute fractures or abnormalities. Departure - Departure Clinical Impression: Acute meniscal tear of right knee, Contusion, Sprain and strain of ankle Time of Disposition: 20:17 Disposition: Discharge to Home or Self Care Condition: Excellent Departure Forms: ED Discharge - Pt. Copy, Patient Portal Self Enrollment Instructions: DI for Leg Pain, Meniscal Tear, Ankle Sprain, Contusion (DC) Diet: regular diet Activity: other - Use crutches and till released by orthopedist or for at least 1 week. Prescriptions: Oxycodone W/ Acetaminophen [Endocet 5-325 mg] 1 tab PO Q6H 3 Days #12 tab Home Medications: Ambulatory Orders Meclizine HCl 25 mg PO Q6HR PRN #14 tab 01/24/20 Gabapentin 100 mg PO QID PRN #30 cap 02/07/20 Acetamin W/Cod #3 Tab [Tylenol w/CODEINE #3] 1 ea PO Q6H PRN 7 Days #10 tab 03/09/20 Cyclobenzaprine HCl [Flexeril] 10 mg PO Q8H PRN 30 Days #30 tab 03/09/20 Oxycodone W/ Acetaminophen [Endocet 5-325 mg] 1 tab PO Q6H 3 Days #12 tab 03/19/20 Additional Instructions: The an orthopedist for further care. No work for 1 week or until released by orthopedist.
--- NOTE | 2020-03-19 19:17 | RAD ---
EXAM DESCRIPTION: Ankle,Right 2 Views (accession [id number]), Knee,Right Complete (accession [id number]), Tibia/Fibula,Right (accession [id number]) CLINICAL HISTORY: 44 years Male, Trauma COMPARISON: None. FINDINGS/IMPRESSION: No fracture or dislocation. Diffuse osteopenia. Talar dome is smooth. Joint spaces are preserved. Knee joint spaces are preserved. Mild prepatellar swelling. Prior transmetatarsal amputation. Soft tissue swelling overlying the stump and midfoot. Infectious process cannot be excluded. No joint effusion. Electronically signed by: Nixon Roy DO 03/19/2020 7:15 PM [facility]
--- NOTE | 2020-03-19 19:17 | RAD ---
EXAM DESCRIPTION: Ankle,Right 2 Views (accession [id number]), Knee,Right Complete (accession [id number]), Tibia/Fibula,Right (accession [id number]) CLINICAL HISTORY: 44 years Male, Trauma COMPARISON: None. FINDINGS/IMPRESSION: No fracture or dislocation. Diffuse osteopenia. Talar dome is smooth. Joint spaces are preserved. Knee joint spaces are preserved. Mild prepatellar swelling. Prior transmetatarsal amputation. Soft tissue swelling overlying the stump and midfoot. Infectious process cannot be excluded. No joint effusion. Electronically signed by: Nixon Roy DO 03/19/2020 7:15 PM [facility]
--- NOTE | 2020-03-19 19:17 | RAD ---
EXAM DESCRIPTION: Ankle,Right 2 Views (accession [id number]), Knee,Right Complete (accession [id number]), Tibia/Fibula,Right (accession [id number]) CLINICAL HISTORY: 44 years Male, Trauma COMPARISON: None. FINDINGS/IMPRESSION: No fracture or dislocation. Diffuse osteopenia. Talar dome is smooth. Joint spaces are preserved. Knee joint spaces are preserved. Mild prepatellar swelling. Prior transmetatarsal amputation. Soft tissue swelling overlying the stump and midfoot. Infectious process cannot be excluded. No joint effusion. Electronically signed by: Nixon Roy DO 03/19/2020 7:15 PM [facility]
[2020-03-19 19:30] VITALS: TEMP 98.9
[2020-03-19 21:07] VITALS: BP 115/73; O2SAT 95
== END 2020-03-19 21:07 | disposition home or self-care (01) ==
LOC: ER 17:39
DX: S83.206A Unspecified tear of unspecified meniscus, current injury, right knee, initial encounter (principal); M25.571 Pain in right ankle and joints of right foot; I10 Essential (primary) hypertension; W55.22XA Struck by cow, initial encounter; Z79.899 Other long term (current) drug therapy; Z88.6 Allergy status to analgesic agent; Z88.0 Allergy status to penicillin; Z88.5 Allergy status to narcotic agent; Y92.39 Other specified sports and athletic area as the place of occurrence of the external cause
CPT/HCPCS: 73562; 73590; 73600; J2270